=== PATIENT | male | born 1960 | race Caucasian/White ===

== ENCOUNTER → 2016-12-18 | Outpatient (REF) | payer OTHER | LOC: M LAB REF 12:09 | DX: R05 Cough (principal) ==

== ENCOUNTER → 2019-10-22 | Outpatient (CLI) | payer OTHER ==
--- NOTE | 2019-10-22 17:18 | ECGEPIP ---
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
== END ==
LOC: M EKG 15:54
DX: Z01.810 Encounter for preprocedural cardiovascular examination (principal); S83.282D Other tear of lateral meniscus, current injury, left knee, subsequent encounter

== ENCOUNTER → 2021-01-13 | Outpatient (CLI) | payer OTHER ==
--- NOTE | 2021-01-13 10:07 | REP ---
INDICATION: BUCKET HANDLE TEAR, R/O MENISCUS TEAR, COMPARE. COMPARISON: MRI 04/18/2020. TECHNIQUE: Multiple sequences obtained in the axial, coronal and sagittal planes. FINDINGS: Menisci: There is no change in the complex tear of the body and anterior horn of the lateral meniscus. Once again the posterior horn of the medial meniscus is truncated in appearance. The complex tear of the anterior and posterior horns of the medial meniscus appears unchanged. Cruciate ligaments: Mild diffuse increased signal on T2 weighted images throughout the anterior cruciate ligament is unchanged. Collateral ligaments: Intact. There is new mild to moderate edema in the soft tissues just superficial to the lateral collateral ligament. Extensor mechanism/patellar retinacula: Intact. Cartilage: There is fissuring of the cartilage of the medial patellar facet. Moderate diffuse chondromalacia of the lateral femoral condyle and tibial plateau is stable. There is a focal 7 mm osteochondral lesion of the posterior aspect of medial femoral condyle which is unchanged. Bone marrow: Normal signal, no edema or occult fracture. Joint fluid: No effusion. Popliteal region: There is minimal fluid in the medial popliteal fossa. The previously noted complex septated meniscal cyst along the lateral meniscus margin has again increased in size and now extends more posteriorly along the posterior margin of the posterior horn of the lateral meniscus. IMPRESSION: The previously identified lateral and medial meniscal tear is appear unchanged. Mild chronic ill-defined increased signal on T2 weighted images throughout the anterior cruciate ligament is stable. There is new mild to moderate ill-defined soft tissue edema just superficial to the lateral collateral ligament. The lateral meniscal cyst has increased in size and now extends along the posterior margin of the posterior horn of the lateral meniscus. Cartilaginous thinning is stable. <Electronically signed by Steve Rivera > 01/13/21 1004
== END ==
LOC: M RAD 07:45
PROVIDERS: ATTEND Orthopaedic Surgery
DX: S83.212D Bucket-handle tear of medial meniscus, current injury, left knee, subsequent encounter (principal)